=== PATIENT | male | born 1935 | race Asian ===

== ENCOUNTER 2022-09-17 12:39 | Inpatient (IN) | payer MEDICARE, OTHER ==
[~2022-09-17] VITALS: Ht 170.2 cm; Wt 54.3 kg
[2022-09-17] MEDS ORDERED: METO200T28 PO (13:02)
[2022-09-17] MEDS ORDERED: ASPI81CH33 PO (13:03)
[2022-09-17] MEDS ORDERED: RAMI1CAP21 PO (13:03)
[2022-09-17 13:54] LABS: BASO # 0.1 10^3/uL (0.0-0.2); BASO % 0.4 % (0.0-1.0); EOS # 0.1 10^3/uL (0.0-0.5); EOS % 0.5 % (0.0-3.0); HEMATOCRIT 38.9 % (42.0-52.0); HEMOGLOBIN 13.2 g/dl (13.5-17.5); LYMPH # 1.8 10^3/uL (1.5-5.0); LYMPH % 12.3 % (24.0-44.0); MEAN CORPUSCULAR HEMOGLOBIN 31.4 pg (27.0-33.0); MEAN CORPUSCULAR HGB CONC 33.9 g/dl (32.0-36.5); MEAN CORPUSCULAR VOLUME 92.6 fl (80.0-96.0); MONO # 1.4 10^3/uL (0.0-0.8); MONO % 10.1 % (2.0-8.0); NEUTROPHILS # 10.8 10^3/uL (1.5-8.5); NEUTROPHILS % 76.1 % (36.0-66.0); PLATELET COUNT, AUTOMATED 236 10^3/uL (150-450); WHITE BLOOD COUNT 14.2 10^3/uL (4.0-10.0)
[2022-09-17 14:26] LABS: ALBUMIN 3.3 GM/DL (3.2-5.2); ALT/SGPT 19 U/L (12-78); BILIRUBIN,DIRECT 0.2 MG/DL (0.0-0.2); BILIRUBIN,TOTAL 0.9 MG/DL (0.2-1.0); BLOOD UREA NITROGEN 19 MG/DL (7-18); CALCIUM LEVEL 9.2 MG/DL (8.8-10.2); CARBON DIOXIDE LEVEL 28 MEQ/L (21-32); CHLORIDE LEVEL 100 MEQ/L (98-107); GLOMERULAR FILTRATION RATE > 60.0 (>35); GLUCOSE, FASTING 108 MG/DL (70-100); LIPASE 127 U/L (73-393); POTASSIUM SERUM 3.8 MEQ/L (3.5-5.1); SODIUM LEVEL 134 MEQ/L (136-145); TOTAL PROTEIN 7.2 GM/DL (6.4-8.2)
[2022-09-17] MEDS ORDERED: NS 500 ML IV ONE ×2 (14:50→17:50)
[2022-09-17] MEDS ORDERED: NS 1,000 ML IV ONE (15:30)
[2022-09-17] MEDS ORDERED: ACETAMINOPHEN 500 MG TAB PO ONE (15:35)
[2022-09-17] MEDS ORDERED: ISOVUE-370 76% 100ML VIAL As Ordered ONE (16:33)
[2022-09-17 16:51] LABS: RSV AMPLIFICATION NEGATIVE (NEGATIVE)
[2022-09-17] MEDS ORDERED: VITMTA PO (17:03)
[2022-09-17] MEDS ORDERED: ACET1TAB55 PO (17:03)
[2022-09-17] MEDS ORDERED: VITA250T4 PO (17:03)
[2022-09-17] MEDS ORDERED: KP F1200 PO (17:03)
[2022-09-17] MEDS ORDERED: HOME MED LIST COMPLETE! XX SCH (17:05)
[2022-09-17 17:11] LABS: CK-MB VALUE MASS 1.3 NG/ML (<3.6); MB/CK RELATIVE INDEX 0.34 (< OR =4)
[2022-09-17 17:46] LABS: INR 1.13; PROTHROMBIN TIME 14.7 SECONDS (12.5-14.5)
[2022-09-17 18:27] LABS: CK-MB VALUE MASS 1.6 NG/ML (<3.6); MB/CK RELATIVE INDEX 3.02 (< OR =4)
[2022-09-17] MEDS ORDERED: metroNIDAZOLE 500 MG in IV 1 EA IV ONE (19:05)
[2022-09-17] MEDS ORDERED: CIPROFLOXACIN 400 MG in IV 1 EA IV ONE (19:05)
[2022-09-17 20:21] LABS: HEMATOCRIT 34.1 % (42.0-52.0); HEMOGLOBIN 11.8 g/dl (13.5-17.5)
[2022-09-17 22:40] LABS: CK-MB VALUE MASS 1.9 NG/ML (<3.6); MB/CK RELATIVE INDEX 2.79 (< OR =4)
[2022-09-17] MEDS ORDERED: HYDROMORPHONE HCL 0.5 MG/ 0.5 ML SYRINGE (J1170 PER 1) IV PRN (22:45)
[2022-09-17] MEDS: NS 1,000 ML IV SCH (23:44)
[2022-09-18 00:13] LABS: HEMOGLOBIN 11.5 g/dl (13.5-17.5)
[2022-09-18 05:00] VITALS: BP 153/69
[2022-09-18] MEDS: metroNIDAZOLE 500 MG in IV 1 EA IV SCH ×3 (06:01→22:04)
[2022-09-18 07:12] LABS: HEMATOCRIT 33.1 % (42.0-52.0); HEMOGLOBIN 11.2 g/dl (13.5-17.5)
[2022-09-18] MEDS ORDERED: hydrALAZINE 20MG/ML 1ML VIAL (J0360 PER 20MG) IV PRN (07:50)
[2022-09-18 08:00] VITALS: BP 141/64
[2022-09-18 08:17] LABS: BLOOD UREA NITROGEN 11 MG/DL (7-18); CALCIUM LEVEL 8.1 MG/DL (8.8-10.2); CARBON DIOXIDE LEVEL 25 MEQ/L (21-32); CHLORIDE LEVEL 109 MEQ/L (98-107); CREATININE FOR GFR 0.84 MG/DL (0.70-1.30); GLOMERULAR FILTRATION RATE > 60.0 (>35); GLUCOSE, FASTING 90 MG/DL (70-100); POTASSIUM SERUM 3.8 MEQ/L (3.5-5.1); SODIUM LEVEL 141 MEQ/L (136-145)
[2022-09-18 09:46] LABS: BLOOD UREA NITROGEN 10 MG/DL (7-18); CREATININE FOR GFR 0.88 MG/DL (0.70-1.30); GLUCOSE, FASTING 84 MG/DL (70-100)
[2022-09-18 09:47] LABS: CARBON DIOXIDE LEVEL 24 MEQ/L (21-32); CHLORIDE LEVEL 109 MEQ/L (98-107); GLOMERULAR FILTRATION RATE > 60.0 (>35); POTASSIUM SERUM 3.8 MEQ/L (3.5-5.1); SODIUM LEVEL 141 MEQ/L (136-145)
[2022-09-18] MEDS: CIPROFLOXACIN 400 MG in IV 1 EA IV SCH ×2 (10:06→20:29)
[2022-09-18] MEDS: TAMSULOSIN 0.4 MG CAP PO SCH (10:23)
[2022-09-18 12:00] VITALS: BP 148/67
[2022-09-18 12:31] LABS: HEMATOCRIT 36.2 % (42.0-52.0)
[2022-09-18] MEDS: NS 1,000 ML IV SCH (14:22)
[2022-09-18] MEDS ORDERED: DEXTROSE 50% 50 ML SYRINGE IV PRN (15:15)
[2022-09-18] MEDS ORDERED: GLUCAGON INJ 1MG VIAL SC PRN (15:15)
[2022-09-18] MEDS ORDERED: GLUCOSE 4GM CHEW TABLET PO PRN (15:15)
[2022-09-18] MEDS: D5W/0.9% SODIUM CHLORIDE 1,000 ML IV SCH (15:38)
[2022-09-18 16:00] VITALS: BP 151/66
[2022-09-18 16:11] LABS: CHOLESTEROL LEVEL 146 MG/DL (<200); CHOLESTEROL RISK RATIO 2.561 (<5); FOLATE > 24.0 NG/ML (>5.4); HDL CHOLESTEROL 57 MG/DL (>40); LDL CHOLESTEROL 69 MG/DL (<100); NON-HDL-C 89 MG/DL; TOTAL 25(OH) VITAMIN D 45.4 NG/ML (30.0-100.0); TRIGLYCERIDES LEVEL 101 MG/DL (<150); VITAMIN B12 LEVEL 693 PG/ML (247-911)
[2022-09-18 18:24] LABS: HEMATOCRIT 33.3 % (42.0-52.0); HEMOGLOBIN 11.2 g/dl (13.5-17.5); MEAN CORPUSCULAR HEMOGLOBIN 31.3 pg (27.0-33.0); MEAN CORPUSCULAR HGB CONC 33.6 g/dl (32.0-36.5); PLATELET COUNT, AUTOMATED 210 10^3/uL (150-450); RED BLOOD COUNT 3.58 10^6/uL (4.30-6.10); WHITE BLOOD COUNT 12.7 10^3/uL (4.0-10.0)
[2022-09-18 20:00] VITALS: BP 150/70
[2022-09-18 21:14] LABS: HEMOGLOBIN A1c 5.6 %
[2022-09-18] MEDS: ACETAMINOPHEN TAB 650MG DOSE (2X325MG) PO PRN (21:15)
[2022-09-19] MEDS: D5W/0.9% SODIUM CHLORIDE 1,000 ML IV SCH (01:11)
[2022-09-19] MEDS: ACETAMINOPHEN TAB 650MG DOSE (2X325MG) PO PRN ×2 (01:54→20:13)
[2022-09-19 04:00] VITALS: BP 126/59
[2022-09-19] MEDS: metroNIDAZOLE 500 MG in IV 1 EA IV SCH ×3 (05:01→21:29)
[2022-09-19] MEDS ORDERED: METO1TAB32 PO (05:56)
[2022-09-19] MEDS ORDERED: ENAL1TAB46 PO (05:56)
[2022-09-19 06:12] LABS: HEMATOCRIT 35.2 % (42.0-52.0); HEMOGLOBIN 11.6 g/dl (13.5-17.5); MEAN CORPUSCULAR HEMOGLOBIN 31.3 pg (27.0-33.0); MEAN CORPUSCULAR VOLUME 94.9 fl (80.0-96.0); PLATELET COUNT, AUTOMATED 237 10^3/uL (150-450); RED BLOOD COUNT 3.71 10^6/uL (4.30-6.10); WHITE BLOOD COUNT 11.8 10^3/uL (4.0-10.0)
[2022-09-19 06:36] LABS: BLOOD UREA NITROGEN 7 MG/DL (7-18); CALCIUM LEVEL 8.2 MG/DL (8.8-10.2); CARBON DIOXIDE LEVEL 25 MEQ/L (21-32); CHLORIDE LEVEL 109 MEQ/L (98-107); CREATININE FOR GFR 1.02 MG/DL (0.70-1.30); GLOMERULAR FILTRATION RATE > 60.0 (>35); GLUCOSE, FASTING 119 MG/DL (70-100); POTASSIUM SERUM 3.5 MEQ/L (3.5-5.1); SODIUM LEVEL 139 MEQ/L (136-145)
[2022-09-19 07:42] LABS: MAGNESIUM LEVEL 1.8 MG/DL (1.8-2.4)
[2022-09-19 08:00] VITALS: BP 147/68
[2022-09-19] MEDS: CIPROFLOXACIN 400 MG in IV 1 EA IV SCH ×2 (09:01→20:10)
[2022-09-19] MEDS: TAMSULOSIN 0.4 MG CAP PO SCH (09:01)
[2022-09-19] MEDS: ATORVASTATIN 20 MG TAB PO SCH (11:12)
[2022-09-19 11:15] LABS: FERRITIN 303 NG/ML (26-388); IRON (FE) 42 UG/DL (65-175); PERCENT SATURATION 25.1 % (19.7-50.0); TOTAL IRON BINDING CAPACITY 167 UG/DL (250-450)
[2022-09-19 14:17] VITALS: BP 171/72
[2022-09-19 15:53] VITALS: BP 146/67
[2022-09-19] MEDS ORDERED: PILL CUTTER 1 EACH XX PRN (17:15)
[2022-09-19 18:23] LABS: HEMOGLOBIN 11.2 g/dl (13.5-17.5); MEAN CORPUSCULAR HEMOGLOBIN 31.5 pg (27.0-33.0); MEAN CORPUSCULAR VOLUME 92.7 fl (80.0-96.0); RED BLOOD COUNT 3.56 10^6/uL (4.30-6.10); WHITE BLOOD COUNT 10.6 10^3/uL (4.0-10.0)
[2022-09-19 18:24] LABS: MEAN CORPUSCULAR HGB CONC 33.9 g/dl (32.0-36.5); PLATELET COUNT, AUTOMATED 229 10^3/uL (150-450)
[2022-09-19 20:00] VITALS: BP 143/69
[2022-09-19] MEDS: METOPROLOL SUCC *XL* 25MG TAB (TopROL *XL*) PO SCH (20:12)
[2022-09-19] MEDS: ENALAPRIL MALEATE 5 MG TAB PO SCH (20:12)
[2022-09-20 04:00] VITALS: BP 143/68
[2022-09-20] MEDS: metroNIDAZOLE 500 MG in IV 1 EA IV SCH (05:09)
[2022-09-20 06:15] LABS: BLOOD UREA NITROGEN 4 MG/DL (7-18); CALCIUM LEVEL 7.7 MG/DL (8.8-10.2); CARBON DIOXIDE LEVEL 26 MEQ/L (21-32); CHLORIDE LEVEL 108 MEQ/L (98-107); CREATININE FOR GFR 0.91 MG/DL (0.70-1.30); GLOMERULAR FILTRATION RATE > 60.0 (>35); GLUCOSE, FASTING 105 MG/DL (70-100); POTASSIUM SERUM 3.2 MEQ/L (3.5-5.1); SODIUM LEVEL 138 MEQ/L (136-145)
[2022-09-20] MEDS ORDERED: POTASSIUM CHLORIDE 10MEQ SR TABLET PO ONE ×2 (06:35→08:00)
[2022-09-20 08:00] VITALS: BP 142/68
[2022-09-20] MEDS: ATORVASTATIN 20 MG TAB PO SCH (09:40)
[2022-09-20] MEDS: ENALAPRIL MALEATE 5 MG TAB PO SCH (09:40)
[2022-09-20 09:41] VITALS: BP 142/68
[2022-09-20] MEDS: CIPROFLOXACIN 400 MG in IV 1 EA IV SCH (09:41)
[2022-09-20] MEDS: METOPROLOL SUCC *XL* 25MG TAB (TopROL *XL*) PO SCH (09:41)
[2022-09-20] MEDS: TAMSULOSIN 0.4 MG CAP PO SCH (09:42)
[2022-09-20] MEDS ORDERED: METAMUCIL (PSYLLIUM) PACKET PO SCH (10:55)
[2022-09-20] MEDS ORDERED: MIRALAX *UNIT DOSE* 17GM PACKET PO SCH (10:55)
[2022-09-20] MEDS ORDERED: ACET1TAB55 PO (11:41)
[2022-09-20] MEDS ORDERED: FLOM0.4C39 PO (11:41)
[2022-09-20] MEDS ORDERED: CIPR500T39 PO (11:41)
[2022-09-20] MEDS ORDERED: META1POW PO (11:41)
[2022-09-20] MEDS ORDERED: ATOR1TAB21 PO (11:41)
[2022-09-20] MEDS ORDERED: MIRA1POW3 PO (11:41)
[2022-09-20] MEDS ORDERED: METR-265 PO (11:43)
[2022-09-26 19:07] LABS: VITAMIN A, RETINOL LEVEL 17.3 ug/dL (22.0-69.5); VITAMIN E(ALPHA TOCOPHEROL) 12.2 mg/L (9.0-29.0); VITAMIN E(GAMMA TOCOPHEROL) <0.1 mg/L (0.5-4.9); VITAMIN K1 0.39 ng/mL (0.10-2.20)
== END 2022-09-20 14:20 | disposition home or self-care (01) | DRG 395 ==
LOC: M ED 12:39 → M ED INP 22:43 → M PCU 09-18 05:03
PROVIDERS: ADMIT Internal Medicine; ATTEND Student in an Organized Health Care Education/Training Program
DX: K55.039 Acute (reversible) ischemia of large intestine, extent unspecified (principal); I10 Essential (primary) hypertension; N32.0 Bladder-neck obstruction; N40.1 Benign prostatic hyperplasia with lower urinary tract symptoms; K76.0 Fatty (change of) liver, not elsewhere classified; M79.672 Pain in left foot; K86.89 Other specified diseases of pancreas; K64.8 Other hemorrhoids; K57.90 Diverticulosis of intestine, part unspecified, without perforation or abscess without bleeding; Z79.82 Long term (current) use of aspirin; Z79.899 Other long term (current) drug therapy; T44.7X5A Adverse effect of beta-adrenoreceptor antagonists, initial encounter; T46.4X5A Adverse effect of angiotensin-converting-enzyme inhibitors, initial encounter